=== PATIENT | female | born 1950 | race Caucasian/White ===

== ENCOUNTER 2021-07-27 18:51 | Emergency (ER) | payer MEDICARE, BC ==
[~2021-07-27] VITALS: Ht 157.5 cm; Wt 81.2 kg
[2021-07-27] MEDS ORDERED: TIZANIDINE HCL4 M1 PO (20:35)
[2021-07-27] MEDS ORDERED: GABAPENTIN300 MG PO (20:35)
[2021-07-27] MEDS ORDERED: LEVOTHYROXINE50 MC1 PO (20:35)
[2021-07-27] MEDS ORDERED: NORVASC10 MG PO (20:36)
[2021-07-27] MEDS ORDERED: METOPROLOL SUCC25 MG PO (20:36)
[2021-07-27] MEDS ORDERED: LASIX20 MG PO (20:36)
[2021-07-27] MEDS ORDERED: DICLOFENAC POTA50 MG PO (20:37)
--- OUTSIDE RECORDS SUMMARY | 2021-07-27 22:16 | XMS ---
PreManage Notification: KE SIMMONS Security Patient Day Coordinator Events No recent Security Events currently on file CRITERIA MET - [facility] PROVID[facility] Current PHONE: Unknown Michael has no Care Guidelines for this patient. ECandy VISIT COUNT (12 MO.) 1 SUSY Chavez TOTAL 1 NOTE: Visits indicate total known visits. ED/UCC VISIT TRACKING (12 MO.) 07/27/2021 18:54 SUSY Gregg OR TYPE: Emergency COMPLAINT: - LEG SWELLING/ NO INJ INPATIENT VISIT TRACKING (12 MO.) No inpatient visits to display in this time frame [id number]
[2021-07-27] MEDS ORDERED: POTASSIUM CHLO10 MEQ PO (22:51)
== END 2021-07-27 23:02 | disposition home or self-care (01) ==
LOC: ED 18:51
DX: R60.0 Localized edema (principal); I10 Essential (primary) hypertension; E03.9 Hypothyroidism, unspecified; Z88.2 Allergy status to sulfonamides; Z91.040 Latex allergy status; Z79.899 Other long term (current) drug therapy
CPT/HCPCS: 36415; 71046; 80053; 83880; 84484; 85025; 99283-25